=== PATIENT | male | born 1970 | race Caucasian/White ===

== ENCOUNTER 2023-01-19 19:11 | Emergency (ER) | payer SELFPAY ==
[2023-01-19 19:40] VITALS: BP 156/97; PULSE 107; RESP 20; TEMP 98; BMI 32.1
[2023-01-19] MEDS ORDERED: ACETAMINOPHEN 500 MG TABLET (FP) PO ONE (23:21)
[2023-01-19] MEDS ORDERED: chlordiazePOXIDE HCL 25 MG CAPSULE PO ONE (23:21)
[2023-01-19] MEDS ORDERED: chlordiazePOXIDE HCL 25 MG CAPSULE ONE (23:25)
[2023-01-19] MEDS ORDERED: ACETAMINOPHEN 325 MG TABLET (FP) ONE (23:26)
== END 2023-01-20 00:41 | disposition home or self-care (01) ==
LOC: JER 19:11
DX: F10.10 Alcohol abuse, uncomplicated (principal); R68.83 Chills (without fever); R11.0 Nausea; M54.50 Low back pain, unspecified; G89.29 Other chronic pain; M25.561 Pain in right knee; Y90.9 Presence of alcohol in blood, level not specified
CPT/HCPCS: 99283-25

== ENCOUNTER 2023-01-20 01:06 | Inpatient (IN) | payer SELFPAY ==
[2023-01-20 01:25] VITALS: BMI 44.6
[2023-01-20] MEDS ORDERED: LOPERAMIDE HCL 2 MG CAPSULE PO PRN (01:33)
[2023-01-20] MEDS ORDERED: POLYETHYLENE GLYCOL (HEALTHYLAX) 3350 17 GM PACKET PO PRN (01:33)
[2023-01-20] MEDS ORDERED: ACETAMINOPHEN 325 MG TABLET (FP) PO PRN (01:33)
[2023-01-20] MEDS ORDERED: NALOXONE HCL (KLOXXADO) 8 MG SPRAY NS PRN (01:33)
[2023-01-20] MEDS ORDERED: BISMUTH SUBSALICYLATE 524 MG/30 ML PO PRN (01:33)
[2023-01-20] MEDS ORDERED: DICYCLOMINE HCL 10 MG CAPSULE PO PRN (01:33)
[2023-01-20] MEDS ORDERED: guaiFENesin 600 MG TABLET.ER (FP) PO PRN (01:33)
[2023-01-20] MEDS ORDERED: BENZONATATE 200 MG CAPSULE PO PRN (01:33)
[2023-01-20] MEDS ORDERED: MAGNESIUM HYDROX 2400MG/30ML ORAL SUSPENSION 30 ML CUP PO PRN (01:33)
[2023-01-20] MEDS ORDERED: IBUPROFEN 400 MG TABLET (FP) PO PRN (01:33)
[2023-01-20] MEDS ORDERED: BENZOCAINE/MENTHOL (CHLORASEPTIC ) LOZENGE MM PRN (01:33)
[2023-01-20] MEDS ORDERED: NICOTINE POLACRILEX 2 MG GUM BUC PRN (01:33)
[2023-01-20] MEDS ORDERED: ONDANSETRON *ODT* 4 MG TABLET SL PRN (01:33)
[2023-01-20] MEDS ORDERED: chlordiazePOXIDE HCL 25 MG CAPSULE PO PRN (01:33)
[2023-01-20] MEDS ORDERED: MAG HYDROX/AL HYDROX/SIMETH 30 ML UNIT-DOSE CUP PO PRN (01:33)
[2023-01-20] MEDS ORDERED: IBUPROFEN 600 MG TABLET (FP) PO PRN (01:33)
[2023-01-20] MEDS ORDERED: NALOXONE HCL 0.4 MG/ML VIAL IM PRN (01:33)
[2023-01-20] MEDS ORDERED: chlordiazePOXIDE HCL 25 MG CAPSULE ONE (01:53)
[2023-01-20] MEDS ORDERED: cloNIDine HCL 0.1 MG TABLET PO ONE ×2 (02:01→23:15)
[2023-01-20] MEDS ORDERED: cloNIDine HCL 0.1 MG TABLET ONE (02:15)
[2023-01-20] MEDS: chlordiazePOXIDE HCL 25 MG CAPSULE PO SCH ×4 (05:37→22:27)
[2023-01-20] MEDS: PRENATAL VITAMINS W/ FOLIC ACID TABLET (FP) PO SCH (10:29)
[2023-01-20] MEDS: NICOTINE 21 MG/24 HOURS TOPICAL PATCH TD SCH (10:29)
[2023-01-20] MEDS ORDERED: METHYLPREDNISOLONE 4 MG PO ONE ×2 (13:22→18:30)
[2023-01-20] MEDS ORDERED: [UNRECOGNIZED DRUG - OTHER] PO ONE (18:30)
[2023-01-20] MEDS: INSULIN SLIDING SCALE (NOVOLOG) 1 VIAL SQ SCH (20:19)
[2023-01-20] MEDS ORDERED: methylPREDNISolone 4 MG TABLET PO ONE (22:00)
[2023-01-20] MEDS ORDERED: MELATONIN 5 MG TABLETS PO SCH (22:00)
[2023-01-20] MEDS ORDERED: THIAMINE HCL 100 MG TABLET (FP) PO SCH (22:00)
[2023-01-20] MEDS: NAPROXEN 500 MG PO SCH (22:27)
[2023-01-21] MEDS: chlordiazePOXIDE HCL 25 MG CAPSULE PO SCH ×2 (05:52→10:23)
[2023-01-21] MEDS: INSULIN SLIDING SCALE (NOVOLOG) 1 VIAL SQ SCH ×2 (06:29→11:41)
[2023-01-21] MEDS ORDERED: methylPREDNISolone 4 MG TABLET PO SCH ×2 (07:00)
[2023-01-21] MEDS ORDERED: metFORMIN HCL 500 MG TABLET (FP) PO SCH ×2 (07:00→19:27)
[2023-01-21 09:03] VITALS: BP 143/96; PULSE 68; RESP 17; TEMP 98.6
[2023-01-21] MEDS ORDERED: PATIENT'S OWN MEDICATION (NON-FORMULARY) (Famotidine 40 MG Tablet) PO SCH (10:00)
[2023-01-21] MEDS: NAPROXEN 500 MG PO SCH (10:21)
[2023-01-21] MEDS: NICOTINE 21 MG/24 HOURS TOPICAL PATCH TD SCH (10:22)
[2023-01-21] MEDS: PRENATAL VITAMINS W/ FOLIC ACID TABLET (FP) PO SCH (10:22)
[2023-01-21 11:32] LABS: HEMATOCRIT 36.8 % (35.4-49); HEMOGLOBIN 12.7 GM/dL (11.7-16.9); MCH 30.4 pg (25.7-33.7); MCHC 34.5 g/dl (32.0-35.9); PLATELET COUNT 124 10^3/uL (134-434); RBC 4.18 M/mm3 (4.00-5.60); RDW 12.9 % (11.9-15.9); WHITE BLOOD COUNT 5.8 K/mm3 (4.0-10.0)
[2023-01-21 12:04] LABS: ALBUMIN 3.9 g/dl (3.4-5.0); BLOOD UREA NITROGEN 14.7 mg/dL (7-18); CALCIUM 9.8 mg/dL (8.5-10.1)
[2023-01-21 12:08] LABS: BILIRUBIN,TOTAL 1.4 mg/dL (0.2-1); CREATININE 0.7 mg/dL (0.55-1.3)
[2023-01-21 12:09] LABS: TOT PROT 7.3 g/dl (6.4-8.2)
[2023-01-21] MEDS ORDERED: methylPREDNISolone 4 MG TABLET PO ONE (22:00)
[2023-01-22] MEDS ORDERED: chlordiazePOXIDE HCL 10 MG CAPSULE PO PRN
[2023-01-22] MEDS ORDERED: chlordiazePOXIDE HCL 10 MG CAPSULE PO SCH (05:00)
[2023-01-22] MEDS ORDERED: METHYLPREDNISOLONE 4 MG PO SCH (07:00)
[2023-01-23] MEDS ORDERED: chlordiazePOXIDE HCL 10 MG CAPSULE PO SCH (05:00)
[2023-01-23] MEDS ORDERED: METHYLPREDNISOLONE 4 MG PO SCH (07:00)
[2023-01-24] MEDS ORDERED: chlordiazePOXIDE HCL 10 MG CAPSULE PO ONE (05:00)
[2023-01-24] MEDS ORDERED: METHYLPREDNISOLONE 4 MG PO ONE (06:00)
== END 2023-01-21 11:30 | disposition left against medical advice (07) | DRG 770 ==
LOC: YASAS 01:06 → Y6N 02:21
PROVIDERS: ADMIT Allergy & Immunology; ATTEND Allergy & Immunology
PROC: HZ2ZZZZ Detoxification Services for Substance Abuse Treatment (ICD-10-PCS; principal; 2023-01-20)
DX: F10.230 Alcohol dependence with withdrawal, uncomplicated (principal); F14.20 Cocaine dependence, uncomplicated; F17.210 Nicotine dependence, cigarettes, uncomplicated; F19.24 Other psychoactive substance dependence with psychoactive substance-induced mood disorder; F10.24 Alcohol dependence with alcohol-induced mood disorder; I10 Essential (primary) hypertension; K21.9 Gastro-esophageal reflux disease without esophagitis; E11.9 Type 2 diabetes mellitus without complications; Z79.84 Long term (current) use of oral hypoglycemic drugs; M54.40 Lumbago with sciatica, unspecified side
CPT/HCPCS: 36415; 80053; 82962; 85027; 86780; 93005; 93010; C9803-CS; U0003; U0005